=== PATIENT | female | born 1990 | race Caucasian/White ===

== ENCOUNTER 2017-05-31 19:18 | Inpatient (IN) | payer OTHER ==
[~2017-05-31] VITALS: Ht 165.1 cm; Wt 80.9 kg
[~2017-05-31 19:18] MED LIST: ADV250INH INH; ALBU17IN2 INH; HYDR-3363 PO; LORA10TA2 PO
[2017-05-31] MEDS ORDERED: CETI10TA PO (20:04)
[2017-05-31 20:51] LABS: MEAN CORPUSCULAR HEMOGLOBIN 31.8 pg (27.0-33.0); MEAN CORPUSCULAR VOLUME 86.9 fl (80.0-96.0); RED CELL DISTRIBUTION WIDTH 11.2 % (11.5-14.5); WHITE BLOOD COUNT 5.4 K/mm3 (4.0-10.0)
[2017-05-31 20:57] LABS: MEAN CORPUSCULAR HGB CONC 36.6 g/dl (32.0-36.5)
[2017-05-31 21:08] LABS: CONTROL LINE HCG INT CTR LINE PRESENT
[2017-05-31 21:15] LABS: METHADONE URINE NEGATIVE (NEGATIVE)
[2017-05-31 21:23] LABS: ALBUMIN 4.3 GM/DL (3.2-5.2); ALBUMIN/GLOBULIN RATIO 1.43 (1.00-1.93); ALKALINE PHOSPHATASE 40 U/L (45-117); ALT/SGPT 19 U/L (12-78); ANION GAP 8 MEQ/L (8-16); AST/SGOT 13 U/L (15-37); BILIRUBIN,DIRECT 0.2 MG/DL (0.0-0.2); BILIRUBIN,TOTAL 0.5 MG/DL (0.2-1.0); BLOOD UREA NITROGEN 7 MG/DL (7-18); CALCIUM LEVEL 8.9 MG/DL (8.5-10.1); CARBON DIOXIDE LEVEL 28 MEQ/L (21-32); CHLORIDE LEVEL 108 MEQ/L (98-107); CREATININE FOR GFR 0.79 MG/DL (0.55-1.02); GLOMERULAR FILTRATION RATE > 60.0 (>60); GLUCOSE, FASTING 75 MG/DL (70-105); POTASSIUM SERUM 3.9 MEQ/L (3.5-5.1); SODIUM LEVEL 144 MEQ/L (136-145); TOTAL PROTEIN 7.3 GM/DL (6.4-8.2)
[2017-05-31] MEDS ORDERED: MAALOX 30 ML SUSP *UDC PO PRN (23:00)
[2017-05-31] MEDS ORDERED: traZODone 50 MG TAB PO PRN (23:00)
[2017-05-31] MEDS ORDERED: MOM 30ML SUSPENSION UDC PO PRN (23:00)
[2017-05-31] MEDS ORDERED: ADVA230A INH (23:17)
[2017-05-31 23:51] VITALS: BP 131/90
[2017-06-01 06:35] VITALS: BP 104/55
--- NOTE | 2017-06-01 08:27 | HPEPDOC ---
Medical History and Physical Date of Admission May 31, 2017 at 22:54 History and Physical PCP: [facility] ATTENDING: Dr. Rai Pena HPI: 26yoM admitted to [facility] for unspecified depressive disorder, being medically examined today. Patient states she has been having loose stools intermittently. Appetite has not been very good lately due to her mood. She has been eating and drinking small amounts. She denies abdominal pain. No urinary complaints. Denies any fevers, chills, weakness, fatigue, FISH, CP, SOB, cough, palpitations, , N/V or changes in bowel or bladder habits. PMHx: Asthma Allergic rhinitis Anxiety depression PSHX: [place] teeth extraction Bartholin's cyst SOCHX: Resides in: [facility], from [place] Marital Status: Kids: None Employment: Active duty Tobacco use: Denies ETOH: One to 2 days per week 3-4 drinks Illicit Drugs: Denies IV Drug Use: Denies Tattoos done unprofessionally: Denies FAMHX: Mother: Alive, well Father: Alive, well Siblings: Half Brother Alive, diabetes Children: None Unexpected deaths due to medical reasons: None. ROS: As noted in HPI, otherwise 11pt ROS of systems reviewed and remarkable only for LMP 05/20/17. PE: GEN: 26 yo F, appears stated age. Well-nourished, well developed. No acute distress. Alert and oriented x 3. Flat affect, avoids eye contact. HEENT: Normocephalic, atraumatic. Pupils are equal, round, and reactive to light. Extraocular movements are intact. No nystagmus appreciated. Sclera are nonicteric. Conjunctiva without injection. Nose midline. Nasal turbinates without bogginess. EACs both patent BL. TMs both visualized and contreras with good cone of light, no bulging or erythema. No facial asymmetry. Moist mucous membranes. Dentition fair. Pharynx pink and moist, no cobblestoning. Neck supple , trachea midline. No lymphadenopathy or thyromegaly appreciated. CHEST: Regular rate and rhythm, +S1, +S2 LUNGS: Clear to auscultation bilaterally. No wheezes, rales, or rhonchi. Breathing appears symmetric and easy. Patient is speaking in full sentences. No accessory muscle use. ABD: Round, soft, non-tender, non-distended. +Bowel sounds throughout. No rebound or guarding. No costovertebral angle tenderness. EXT: Pulses 2+ bilaterally dorsalis pedis and radial. No lower extremity edema appreciated. SKIN: [place], dry, warm. Capillary refill <2sec. No rashes. NEURO: Alert and oriented x 3. Cranial nerves III-XII are intact. No focal deficits appreciated. EKG: Pending A&P: 26yoM admitted to [facility] for unspecified depressive disorder 1. Psych. Plan per Psychiatry. Obtain baseline EKG to assure the safety of psychiatric medications as they can prolong the QT interval. 2. Asthma. Continue Advair 250/50 one puff twice a day. Continue Ventolin 2 puffs every 4 hours as needed. 3. Allergic rhinitis. Continue Claritin 10 mg daily. 4. Follow up with PCP on discharge. [facility]. 5. History of loose stools. Patient remains afebrile. No leukocytosis. Encourage by mouth intake, bland foods. Request GI panel if recurs. Check UA/ urine culture. Patient with no abdominal discomfort, nausea, vomiting will consider CT abdomen/pelvis with persistent or change in symptoms. 6. Staff member Federica SANZ present throughout exam. Vital Signs Vital Signs Date Time Temp Pulse Resp B/P (MAP) Pulse Ox O2 Delivery O2 Flow Rate FiO2 06/01/17 06:35 98.6 88 16 104/55 (71) Room Air 05/31/17 23:34 98 Laboratory Data Labs 24H Laboratory Tests 2 05/31/17 20:28: Anion Gap 8, Glomerular Filtration Rate > 60.0, Calcium Level 8.9, Aspartate Amino Transf (AST/SGOT) 13L, Alanine Aminotransferase (ALT/SGPT) 19, Alkaline Phosphatase 40L, Total Bilirubin 0.5, Direct Bilirubin 0.2, Total Protein 7.3, Albumin 4.3, Albumin/Globulin Ratio 1.43, Thyroid Stimulating Hormone (TSH) 1.360, Human Chorionic Gonadotropin, Qual NEGATIVE, Salicylates Level < 1.7L, Urine Amphetamines Screen NEGATIVE, Urine Benzodiazepines Screen NEGATIVE, Urine Opiates Screen NEGATIVE, Urine Methadone Screen NEGATIVE, Acetaminophen Level < 2.0L, Urine Barbiturates Screen NEGATIVE, Urine Phencyclidine Screen NEGATIVE, Urine Cocaine Metabolite Screen NEGATIVE, Urine Cannabinoids Screen NEGATIVE, Ethyl Alcohol Level 0.112H CBC/BMP Laboratory Tests 05/31/17 20:28 Red Blood Count 4.17, Mean Corpuscular Volume 86.9, Mean Corpuscular Hemoglobin 31.8, Mean Corpuscular Hemoglobin Concent 36.6 H, Red Cell Distribution Width 11.2 L Home Medications Scheduled Cetirizine HCl (Cetirizine HCl) 10 Mg Tab, 10 MG PO DAILY Salmeterol/Fluticasone (Advair Hfa 230-21 Mcg/Act) 1 Aer Aer, 2 PUFF INH BID Scheduled PRN Albuterol Sulfate (Proventil Hfa) 167 Puff/6.7 Gm Aers, 2 PUFFS INH Q4HP PRN for SHORTNESS OF BREATH Allergies Coded Allergies: No Known Allergies (Unverified , 03/11/15) Jennifer Holcomb Jun 01, 2017 08:27
[2017-06-01] MEDS: CitaloPRAM (CeleXA) 20 MG TAB PO SCH (09:00)
[2017-06-01] MEDS ORDERED: hydrOXYzine 50 MG TAB PO PRN (10:15)
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
--- NOTE | 2017-06-01 17:00 | ECGEPIP ---
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
[2017-06-01 18:00] VITALS: BP 130/74
[2017-06-02 06:31] VITALS: BP 120/60
[2017-06-02] MEDS: CitaloPRAM (CeleXA) 20 MG TAB PO SCH (09:00)
[2017-06-02 18:00] VITALS: BP 135/80
--- NOTE | 2017-06-02 18:41 | MHIPNPDOC ---
[facility] Progress Note Progress Note DATE OF SERVICE: 06/02/17 HISTORY: Patient reported that she had slept "okay". Shrugged when asked how she was feeling. Said that she had gone to several groups but had not found any helpful. Continues to refuse medications. Discussed somewhat the stressors between her and her mother, patient feels that she is not in a place to ask her mother to help due to their difficulties getting along. Patient continues to express hopelessness over her situation. VITAL SIGNS: See below. NEW TEST RESULTS: no new labs/imaging CURRENT MEDICATIONS: See below. MENTAL STATUS EXAMINATION: Patient is a 26-year old female, who is dressed in [facility] with fair grooming; makes little to no eye contact, appears very withdrawn Speech: Is fluent; soft tone and volume, normal rate, poor enunciation Thought processes including: linear, coherent Thought content: denies SI; reports depressed mood and hopelessness Description of abnormal or psychotic thoughts: denies AVH, does not appear internally preoccupied; no paranoia or delusions elicited Judgment: fair Insight: fair Orientation: x3 Recent and remote memory: intact Attention span and concentration: intact Mood: patient shrugged and stated "i went to groups". Affect: dysphoric; restricted range; congruent to thought content DIAGNOSES: MDD, severe, without psychotic features ASSESSMENT: Patient is attending groups but refusing pharmacotherapy at this time. She shows little improvement compared to yesterday and continues to endorse feeling quite depressed. Refuses to engage in groups despite attendance and reports no benefit from them. She would likely benefit from pharmacotherapy but currently feels it holds no place for her. MANAGEMENT PLAN: will continue to encourage patient to take medications; continue to encourage group attendance with focus on skill-building TIME SPENT: 15 minutes. Vital Signs Vital Signs Date Time Temp Pulse Resp B/P (MAP) Pulse Ox O2 Delivery O2 Flow Rate FiO2 06/02/17 06:31 97.5 79 18 120/60 (80) 06/01/17 06:35 Room Air 05/31/17 23:34 98 Current Medications Current Medications Acetaminophen (Tylenol Tab) 650 mg Q6HP PRN PO HEADACHE or DISCOMFORT; Start at 23:00; Stop 06/30/17 at 22:59 Al Hydrox/Mg Hydrox/Simethicone (Mylanta) 30 ml Q4HP PRN PO HEARTBURN/ INDIGESTION; Start 05/31/17 at 23:00; Stop 06/30/17 at 22:59 Albuterol Sulfate (Proventil, Ventolin Hfa) 2 puff Q4HP PRN INH SHORTNESS OF BREATH; Start 06/01/17 at 10:30; Stop 07/01/17 at 10:29 Citalopram Hydrobromide (CeleXA) 20 mg DAILY PO ; Start 06/01/17 at 09:00; Stop 07/01/17 at 08:59 Home Med (Med Rec Complete!) ASDIRECTED XX ; Start 05/31/17 at 23:30; Stop 09/04 at 23:30; Status DC Hydroxyzine HCl (Atarax) 50 mg Q6HP PRN PO ANXIETY; Start 06/01/17 at 10:15; Stop 07/01/17 at 10:14 Magnesium Hydroxide (Milk Of Magnesia) 30 ml DAILYPRN PRN PO CONSTIPATION; Start 05/31/17 at 23:00; Stop 06/30/17 at 22:59 Trazodone HCl (Desyrel) 50 mg QHSP PRN PO INSOMNIA; Start 05/31/17 at 23:00; Stop 06/30/17 at 22:59 Allergies Coded Allergies: No Known Allergies (Unverified , 03/11/15) KENAN PEREZ MD Jun 02, 2017 18:41
[2017-06-03 06:34] VITALS: BP 130/83
[2017-06-03] MEDS: CitaloPRAM (CeleXA) 20 MG TAB PO SCH (09:00)
[2017-06-03 18:00] VITALS: BP 113/65
--- NOTE | 2017-06-03 18:17 | MHIPNPDOC ---
[facility] Progress Note Progress Note DATE OF SERVICE: 06/03/17 HISTORY: Patient continues to refuse medications, did not attend groups today because "I hate being here, it's my birthday and I feel trapped." Patient endorses that she would have done many "fun" things such as hike with her dog or buy herself a special meal and she feels frustrated that such a thing cannot happen on the [facility]. A long discussion was had with patient about the purpose of hospitalization, benefits she might acquire from participating in groups, and the use of psychotropic medication. Patient endorsed being angry stating "I'm only here because you want me to be, I have to do what you want to get out". VITAL SIGNS: See below. NEW TEST RESULTS: no new labs CURRENT MEDICATIONS: See below. MENTAL STATUS EXAMINATION: Patient is a 27-year old female, who is dressed in [facility] with fair hygiene/grooming; she makes limited to no eye contact, staring at the floor or her hands instead; she appears withdrawn Speech: Is fluent; soft volume, sad tone, normal rate Thought processes including: concrete Thought content: denies SI/HI, continues to endorse hopelessness; focused on her hatred of being on the unit Description of abnormal or psychotic thoughts: does not appear internally preoccupied; no delusions or paranoia elicited Judgment: poor Insight: poor Orientation: x3 Recent and remote memory: intact Attention span and concentration: intact Mood: "I hate it here". 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 She also discussed the separation between her and her boyfriend which occurred recently, stating that he told her he had to leave because he could not handle her problems. Patient endorsed "venting" to her boyfriend on a regular basis and contradicted herself stating "I was usually happy, but I cried a lot" when discussing her interactions with him. Patient displays an absence of insight into the role her decisions and actions play in the formation of her depressive mood. She also appears to want to "fix myself" but refuses to engage in therapy during this hospitalization, instead blaming the staff for keeping her away from her regular comforts of home. Patient is undergoing denial of her own role at this time and is instead relying on others to complete her. She does not appear safe for discharge at this time. MANAGEMENT PLAN: continue to offer medications; continue to encourage group participation TIME SPENT: 30 minutes. Vital Signs Vital Signs Date Time Temp Pulse Resp B/P (MAP) Pulse Ox O2 Delivery O2 Flow Rate FiO2 06/03/17 06:34 97.6 75 16 130/83 (99) 06/01/17 06:35 Room Air 05/31/17 23:34 98 Current Medications Current Medications Acetaminophen (Tylenol Tab) 650 mg Q6HP PRN PO HEADACHE or DISCOMFORT; Start at 23:00; Stop 06/30/17 at 22:59 Al Hydrox/Mg Hydrox/Simethicone (Mylanta) 30 ml Q4HP PRN PO HEARTBURN/ INDIGESTION; Start 05/31/17 at 23:00; Stop 06/30/17 at 22:59 Albuterol Sulfate (Proventil, Ventolin Hfa) 2 puff Q4HP PRN INH SHORTNESS OF BREATH; Start 06/01/17 at 10:30; Stop 07/01/17 at 10:29 Citalopram Hydrobromide (CeleXA) 20 mg DAILY PO ; Start 06/01/17 at 09:00; Stop 07/01/17 at 08:59 Home Med (Med Rec Complete!) ASDIRECTED XX ; Start 05/31/17 at 23:30; Stop 09/04 at 23:30; Status DC Hydroxyzine HCl (Atarax) 50 mg Q6HP PRN PO ANXIETY; Start 06/01/17 at 10:15; Stop 07/01/17 at 10:14 Magnesium Hydroxide (Milk Of Magnesia) 30 ml DAILYPRN PRN PO CONSTIPATION; Start 05/31/17 at 23:00; Stop 06/30/17 at 22:59 Trazodone HCl (Desyrel) 50 mg QHSP PRN PO INSOMNIA; Start 05/31/17 at 23:00; Stop 06/30/17 at 22:59 Allergies Coded Allergies: No Known Allergies (Unverified , 03/11/15) KENAN PEREZ MD Jun 03, 2017 18:17
[2017-06-04 06:45] VITALS: BP 140/64
[2017-06-04] MEDS: CitaloPRAM (CeleXA) 20 MG TAB PO SCH (09:00)
--- NOTE | 2017-06-04 16:12 | MHIPN ---
DATE: 06/04/2017 CHIEF COMPLAINT: Feels depressed. OBJECTIVE: Seen for followup in the presence of staff. Says feels a bit better but acknowledges feeling depressed and tired. Poor sleep. Says it is because of the uncomfortable bed. Appetite fair. Says has not had any suicidal thoughts today but acknowledges they come and go. Had them yesterday. Also suggests has been doing well at work. 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 This is in contrast to previous times when she is doing well, she says, both at work and at home. MENTAL STATUS EXAMINATION: She is neat, cooperative. There is mild psychomotor retardation. No agitation. Affect is restricted in range. She is coherent. Appears depressed. Denies any suicidal thoughts or intents. No homicidal ideas or intents. No evidence of any psychosis. Cognition grossly intact. Judgment and insight are questionable. ASSESSMENT: Major depressive disorder. PLAN: Continue current care but I would suggest also encouraging her to consider using an antidepressant. Has so far declined it. Some of the barriers that she has in terms of taking an antidepressant are discussed. We also discussed the impact her depressive state has and can have on her ability to function, including at work. She is to be encouraged to participate in activities in the unit. VITAL SIGNS: Blood pressure 140/64, pulse 56, temperature 98.8.
[2017-06-04 18:00] VITALS: BP 134/78
[2017-06-05 06:48] VITALS: BP 121/70
[2017-06-05] MEDS: CitaloPRAM (CeleXA) 20 MG TAB PO SCH ×2 (07:41→08:26)
[2017-06-05] MEDS: ALBUTEROL 90 MCG/ACT 8GM HFA INHALER INH PRN (08:26)
--- NOTE | 2017-06-05 16:49 | MHIPN ---
DATE: 06/05/2017 CHIEF COMPLAINT: Says feels okay. SUBJECTIVE: Seen for followup in the presence of staff. Says feels okay, but acknowledges feeling tired. Says did not have a restful night, though she feels she did sleep. Appetite is fair. Denies active suicidal thoughts or intents. MENTAL STATUS EXAMINATION: Neat, cooperative. Is soft spoken. No agitation, no psychomotor retardation, though does display some latency of response. She has a restricted affect, incongruent with mood. Denies any suicidal thoughts or intents. No homicidal ideas or intents. No evidence of any psychosis. Cognition grossly intact. Judgment and insight remain questionable. ASSESSMENT: Major depressive disorder. PLAN: She is to continue with Celexa 20 mg daily. She started using it, says feels a bit more comfortable doing that. She is to be encouraged to participate in activities in the unit. VITAL SIGNS: Blood pressure 121/73, pulse 57, temperature 97.9.
[2017-06-05 18:00] VITALS: BP 125/76
[2017-06-05] MEDS: ACETAMINOPHEN TAB 650MG DOSE (2X325MG) PO PRN (21:29)
[2017-06-06 06:38] VITALS: BP 102/52
[2017-06-06] MEDS: CitaloPRAM (CeleXA) 20 MG TAB PO SCH (08:32)
[2017-06-06 18:00] VITALS: BP 116/73
--- NOTE | 2017-06-06 18:12 | MHIPNPDOC ---
[facility] Progress Note Progress Note DATE OF SERVICE: 06/06/17 HISTORY: Patient reports feeling much the same; has been attending groups and taking medications because she was tired of being asked about them. Patient also states that a staff member told her she would need to demonstrate willingness to attend group if she wanted to be considered by [facility] upon discharge. Patient reports no benefits noticed so far. Expresses some anxiety about an upcoming visit by her mother which she identifies as stressful because she is uncertain of how to handle her mother's requests.. VITAL SIGNS: See below. NEW TEST RESULTS: no new labs/imaging. CURRENT MEDICATIONS: See below. MENTAL STATUS EXAMINATION: Patient is a 27-year old female, who is dressed in hospital clothes with fair grooming; withdrawn, slightly improved eye contact compared to previous interviews Speech: Is fluent; normal rate and tone; soft volume Thought processes including: logical, linear, coherent Thought content: denies SI/HI; depressed mood and focus on entering [facility] Description of associations: intact Description of abnormal or psychotic thoughts: denies AVH, does not appear internally preoccupied; no paranoia or delusions elicited Judgment: fair Insight: fair Orientation: x3 Recent and remote memory: intact Attention span and concentration: intact Mood: shrugs and states "okay". Affect: dysphoric; blunted range; congruent to mood and thought content DIAGNOSES: MDD, severe, without psychotic features Unspecified Personality Disorder ASSESSMENT: Patient reports feeling tired now that she is taking Celexa but continues to take for the time being. She is exhibiting minimal effort to comply with the treatment program. However, patient is exhibiting some improved mood. She remains desirous of transfer to the [facility] upon discharge. At this time she is still ambivalent regarding continuation with the . Patient has previously expressed dissatisfaction with her proposed medical discharge. MANAGEMENT PLAN: continue to encourage patient along current therapeutic plans; will continue to assess for change and monitor patient's improvement TIME SPENT: 15 minutes. Vital Signs Vital Signs Date Time Temp Pulse Resp B/P (MAP) Pulse Ox O2 Delivery O2 Flow Rate FiO2 06/06/17 06:38 97.7 60 18 102/52 (69) 06/05/17 08:53 Room Air 05/31/17 23:34 98 Current Medications Current Medications Acetaminophen (Tylenol Tab) 650 mg Q6HP PRN PO HEADACHE or DISCOMFORT Last administered on 06/05/17 21:29; Start 05/31/17 at 23:00; Stop 06/30/17 at 22: 59 Al Hydrox/Mg Hydrox/Simethicone (Mylanta) 30 ml Q4HP PRN PO HEARTBURN/ INDIGESTION; Start 05/31/17 at 23:00; Stop 06/30/17 at 22:59 Albuterol Sulfate (Proventil, Ventolin Hfa) 2 puff Q4HP PRN INH SHORTNESS OF BREATH Last administered on 06/05/17 08:26; Start 06/01/17 at 10:30; Stop at 10:29 Citalopram Hydrobromide (CeleXA) 20 mg DAILY PO Last administered on 06/06/17 08:32; Start 06/01/17 at 09:00; Stop 06/06/17 at 14:54; Status DC Citalopram Hydrobromide (CeleXA) 30 mg QHS PO ; Start 06/06/17 at 21:00; Stop at 21:00; Status DC Citalopram Hydrobromide (CeleXA) 30 mg QHS PO ; Start 06/07/17 at 21:00; Stop 07/07/17 at 20:59 Home Med (Med Rec Complete!) ASDIRECTED XX ; Start 05/31/17 at 23:30; Stop 09/04 at 23:30; Status DC Hydroxyzine HCl (Atarax) 50 mg Q6HP PRN PO ANXIETY; Start 06/01/17 at 10:15; Stop 07/01/17 at 10:14 Magnesium Hydroxide (Milk Of Magnesia) 30 ml DAILYPRN PRN PO CONSTIPATION; Start 05/31/17 at 23:00; Stop 06/30/17 at 22:59 Trazodone HCl (Desyrel) 50 mg QHSP PRN PO INSOMNIA; Start 05/31/17 at 23:00; Stop 06/30/17 at 22:59 Allergies Coded Allergies: No Known Allergies (Unverified , 03/11/15) KENAN PEREZ MD Jun 06, 2017 18:11
[2017-06-06] MEDS ORDERED: CitaloPRAM (CeleXA) 10 MG TABLET PO SCH (21:00)
[2017-06-07 06:26] VITALS: BP 105/61
--- NOTE | 2017-06-07 17:12 | MHIPNPDOC ---
[facility] Progress Note Progress Note DATE OF SERVICE: 06/07/17 HISTORY: Patient still feels tired but notes that it must not be due to her medication as the dose was switched to a PM dose for today. She expresses frustration over her continued hospitalization due to financial stressors as previously discussed and also due to missed classes. Patient frets over the amount of missed work she has piling up. Asks if she can be discharged to follow -up with [facility] until an intake can be scheduled for [facility]. Patient feels her mood is slightly improved but is unable to identify why. VITAL SIGNS: See below. NEW TEST RESULTS: no new labs/imaging CURRENT MEDICATIONS: See below. MENTAL STATUS EXAMINATION: Patient is a 27-year old female, who is dressed in personal clothes, well groomed; calm and cooperative with interview, intermittent eye contact, somewhat withdrawn Speech: Is fluent; short answers; normal tone and volume Thought processes including: logical, linear, coherent Thought content: denies SI/HI; frustration over missed school and work Description of associations: intact Description of abnormal or psychotic thoughts: denies AVH, does not appear internally preoccupied; no paranoia or delusions elicited Judgment: fair Insight: fair Orientation: x3 Recent and remote memory: intact Attention span and concentration: intact Mood: "okay". Affect: neutral; blunted range; congruent to mood and thought content DIAGNOSES: MDD, Severe, without psychotic features Unspecified Personality Disorder ASSESSMENT: Patient has remained free of self-harm and SI throughout the admission so far. She has been minimally compliant with treatment but indicated that past exposure was not beneficial to her either. She is in agreement to continue outpatient services once discharged and has hopes to attend the [facility] for her non-combat PTSD. Patient does not appear to be a danger to herself or others at this time and would likely benefit from outpatient over inpatient services. She remains in agreement to continue medication at this time. MANAGEMENT PLAN: plan for discharge tomorrow pending JERAMY meeting; continue current medications TIME SPENT: 15 minutes. Vital Signs Vital Signs Date Time Temp Pulse Resp B/P (MAP) Pulse Ox O2 Delivery O2 Flow Rate FiO2 06/07/17 06:26 98.2 60 16 105/61 (76) 06/05/17 08:53 Room Air Current Medications Current Medications Acetaminophen (Tylenol Tab) 650 mg Q6HP PRN PO HEADACHE or DISCOMFORT Last administered on 06/05/17 21:29; Start 05/31/17 at 23:00; Stop 06/30/17 at 22: 59 Al Hydrox/Mg Hydrox/Simethicone (Mylanta) 30 ml Q4HP PRN PO HEARTBURN/ INDIGESTION; Start 05/31/17 at 23:00; Stop 06/30/17 at 22:59 Albuterol Sulfate (Proventil, Ventolin Hfa) 2 puff Q4HP PRN INH SHORTNESS OF BREATH Last administered on 06/05/17 08:26; Start 06/01/17 at 10:30; Stop at 10:29 Citalopram Hydrobromide (CeleXA) 20 mg DAILY PO Last administered on 06/06/17 08:32; Start 06/01/17 at 09:00; Stop 06/06/17 at 14:54; Status DC Citalopram Hydrobromide (CeleXA) 30 mg QHS PO ; Start 06/06/17 at 21:00; Stop at 21:00; Status DC Citalopram Hydrobromide (CeleXA) 30 mg QHS PO ; Start 06/07/17 at 21:00; Stop 07/07/17 at 20:59 Home Med (Med Rec Complete!) ASDIRECTED XX ; Start 05/31/17 at 23:30; Stop 09/04 at 23:30; Status DC Hydroxyzine HCl (Atarax) 50 mg Q6HP PRN PO ANXIETY; Start 06/01/17 at 10:15; Stop 07/01/17 at 10:14 Magnesium Hydroxide (Milk Of Magnesia) 30 ml DAILYPRN PRN PO CONSTIPATION; Start 05/31/17 at 23:00; Stop 06/30/17 at 22:59 Trazodone HCl (Desyrel) 50 mg QHSP PRN PO INSOMNIA; Start 05/31/17 at 23:00; Stop 06/30/17 at 22:59 Allergies Coded Allergies: No Known Allergies (Unverified , 03/11/15) KENAN PEREZ MD Jun 07, 2017 17:12
[2017-06-07 18:00] VITALS: BP 110/74
[2017-06-07] MEDS ORDERED: CitaloPRAM (CeleXA) 10 MG TABLET PO SCH (21:00)
[2017-06-08 06:51] VITALS: BP 95/55
[2017-06-08] MEDS: ALBUTEROL 90 MCG/ACT 8GM HFA INHALER INH PRN (08:13)
[2017-06-08] MEDS: ACETAMINOPHEN TAB 650MG DOSE (2X325MG) PO PRN (08:14)
[2017-06-08] MEDS ORDERED: TRAZO50TA PO (09:46)
[2017-06-08] MEDS ORDERED: HYDRO50TAB PO (09:46)
[2017-06-08] MEDS ORDERED: CELE10TA PO (09:46)
--- NOTE | 2017-06-08 18:38 | MHDSPDOC ---
[facility] Discharge Summary Discharge Summary DATE OF ADMISSION: May 31, 2017 at 22:54 DATE OF DISCHARGE: Jun 08, 2017 at 13:10 DISCHARGE DIAGNOSES: MDD, severe, without psychotic features Unspecified Personality Disorder REASON FOR ADMISSION: Patient had sent text to a friend stating that she was wanting to "leave here" by which she meant commit suicide. Patient was admitted for safety and stabilization. CONSULTANTS INVOLVED: none TREATMENT AND PROGRESS ON THE UNIT : Patient was resistant to medications or attending groups, overtly hostile towards staff and mental health treatment in general. Patient remained resistant for several days but gradually volunteered more information about her past. She was willing to discuss in depth the stress of her mother and her financial situation as well as her pain over losing her brother to suicide last year. Patient expressed interest in attending [facility] for non-combat related PTSD. After being told that she would need to demonstrate willingness to participate in treatment she began taking medications and attending group. Patient was discharged to [facility] with plan to follow-up at [facility] for continued care. HOSPITAL COURSE: Patient was hostile and resistant to treatment throughout the early part of her stay. Eventually she was able to relax and participate more in her care. She showed a gradual improvement in mood prior to discharge. At no point during her stay did she indicate that she was feeling suicidal or homicidal. Patient was able to verbalize several coping strategies to avoid feeling suicidal in the future. 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 Patient does not appear to be a danger to herself or others at this time and has not demonstrated an impulsive nature during this admission. Currently she is in agreement with continuing both medications and intensive outpatient therapy, this will likely prove to be a great benefit to her in the future. She has remained stable throughout her stay and demonstrated the ability to talk openly about her feelings. At this time she may be discharged to outpatient care in the presence of escort. MENTAL STATUS EXAMINATION ON DISCHARGE: Patient is a 27-year old female, who is dressed in personal clothes with good grooming; calm, cooperative, intermittent eye contact Speech is fluent; normal tone, volume, and rate Thought processes including: logical, linear, coherent Thought content: denies SI/HI; worried about catching up on missed school, hopeful for [facility] Abstract reasoning, and computation: intact Description of associations: intact Description of abnormal or psychotic thoughts: denies AVH, does not appear internally preoccupied; no delusions or paranoia elicited Judgment: fair Insight: good Orientation to x3 Recent and remote memory: intact Attention span and concentration: intact Mood: "pretty good" Affect: euthymic; blunted range; congruent to mood and thought content MEDICATIONS ON DISCHARGE: Celexa 30mg QHS for mood Trazodone 50mg QHS PRN for sleep PLAN/FOLLOWUP ARRANGEMENTS: discharge to [facility], will follow-up at [facility] The amount of time spent in the coordination of care for this patient was approximately 30 minutes. Vital Signs/I&Os Vital Signs Date Time Temp Pulse Resp B/P (MAP) Pulse Ox O2 Delivery O2 Flow Rate FiO2 06/08/17 06:51 97.5 59 18 95/55 (68) Room Air Laboratory Data Microbiology Microbiology 06/03/17 Gastrointestinal Tract Panel (PCR) - Final, Complete 06/01/17 Urine Culture - Final, Complete Medications Scheduled Cetirizine HCl (Cetirizine HCl) 10 Mg Tab, 10 MG PO DAILY, (Reported) Citalopram Hydrobromide (Celexa) 10 Mg Tab, 30 MG PO QHS for MOOD, #21 Salmeterol/Fluticasone (Advair Hfa 230-21 Mcg/Act) 1 Aer Aer, 2 PUFF INH BID, ( Reported) Scheduled PRN Albuterol Sulfate (Proventil Hfa) 167 Puff/6.7 Gm Aers, 2 PUFFS INH Q4HP PRN for SHORTNESS OF BREATH, (Reported) Hydroxyzine HCl (Hydroxyzine HCl) 50 Mg Tab, 50 MG PO Q6HP PRN for ANXIETY, #14 Trazodone HCl (Trazodone HCl) 50 Mg Tab, 50 MG PO QHSP PRN for INSOMNIA, #10 Allergies Coded Allergies: No Known Allergies (Unverified , 03/11/15) KENAN PEREZ MD Jun 08, 2017 18:38
== END 2017-06-08 13:10 | disposition home or self-care (01) | DRG 885 ==
LOC: M ED 19:18 → M ED INP 22:54 → M PSY 23:51
PROVIDERS: ADMIT Psychiatry & Neurology Psychiatry; ATTEND Psychiatry & Neurology Psychiatry
DX: F32.2 Major depressive disorder, single episode, severe without psychotic features (principal); R45.851 Suicidal ideations; J45.909 Unspecified asthma, uncomplicated; J30.9 Allergic rhinitis, unspecified; F60.9 Personality disorder, unspecified; Z79.899 Other long term (current) drug therapy